=== PATIENT | male | born 1940 | race Caucasian/White ===

== ENCOUNTER 2017-01-13 19:53 | Inpatient (IN) | payer OTHER ==
--- NOTE | ~2017-01-13 | CR72 ---
[facility] A Service of [facility] RADIOLOGY TEXT RESULTS PATIENT: PATRICIA ARIAS LOCATION: [facility] 314-01 : 42 UNIT #: [id number] AGE: [address]: Malena Baugh MD SEX: M ORDER DR: [id number] [facility] [address] [place], [place] [address] [id number] MR#: [id number] Acc #: [id number] NAME: PATRICIA ARIAS. : 1940 SEX: M STUDY DATE/TIME: 01/13/2017 20:17 UNIT: [address] ROOM: [facility] STUDY DESCRIPTION: CR Chest Single View Portable Attending Physician: Malena Baugh M.D. Ordering Physician: Anmol Yeung M.D. Primary Care Physician: Ethan Amos M.D. MEDICAL IMAGING REPORT This report is preliminary unless electronic signature is present EXAM Single view chest. INDICATIONS Shortness of air for 3 days. Cough and congestion. Pneumonia. FINDINGS Single portable AP view of the chest compared to 01/13/2017. Heart and mediastinal contours are within normal limits. There are some chronic interstitial opacities in both lungs. No pleural effusion. IMPRESSION 1. No acute findings or significant interval change. Dictated by... Jordon Hall M.D. THIS IS AN ELECTRONICALLY VERIFIED REPORT Jordon Hall M.D. at 01/14/2017 10:55 AM Danita/scout TD: 01/14/2017 10:19 JOB #: [id number] MEDICAL IMAGING REPORT Page 1 of 1 COPY
--- NOTE | ~2017-01-13 | HP ---
Unit #: [id number] #: [id number] Patient: PATRICIA ARIAS [id number] [address] [place], [place] [address] [id number] MR#: [id number] NAME: PATRICIA ARIAS. ROOM: 314 Age: 76 Sex: M Admission Date: 01/13/2017 : 1940 Attending Physician: Zulay Haile M.D. Primary Care Physician: Ethan Amos M.D. HISTORY AND PHYSICAL CHIEF COMPLAINT Occult community-acquired pneumonia with respiratory failure. HISTORY This 76-year-old male with atrial fibrillation, hypertension, is admitted for pneumonia. The patient was well until about a week ago when he developed a cough, sore throat and hoarseness. His cough has become deeper and is productive of green sputum. More recently, he has developed shortness of breath, poor p.o. intake, weakness and diaphoresis with a temperature of 100 degrees. He was seen by his primary care physician this morning, given Zithromax and Tessalon Perles. The patient felt worse and, therefore, presented to this emergency department tonight where he was given 2 g of IV Rocephin, along with IV fluids. His initial O2 saturation was about 88% on room air. Chest x-ray does not show a definite diseased process but I am highly suspicious the patient does have an occult pneumonia. He has not required antibiotics for the past three months nor has he been hospitalized recently. PAST MEDICAL HISTORY 1. Atrial fibrillation. Previous echo in 2007. Ejection fraction 50% to 55% with trace TR, ND, MR. 2. Hemorrhoids. 3. Essential hypertension. 4. Hyperlipidemia. 5. Hyperuricemia. 6. Oral surgery. ALLERGIES No known drug allergies. HOME MEDICATIONS 1. Zocor 40 mg daily. 2. Hydrochlorothiazide 25 mg daily. 3. Recently started on Tessalon Perles and Zithromax today. 4. Coumadin 5 mg every day except for 7.5 mg Mondays, Wednesdays, Saturdays. 5. Aspirin 81 mg daily. 6. Allopurinol 300 mg daily. 7. Cozaar 100 mg daily. Will verify home medicines. Unit #: [id number] #: [id number] Patient: PATRICIA ARIAS FAMILY HISTORY Hypertension and COPD. SOCIAL HISTORY The patient lives with his . Seldom drinks alcohol. He smokes about five packs per day of tobacco for about 30 years but stopped smoking 30 years ago. REVIEW OF SYSTEMS Notable for productive cough, diaphoresis, shortness of breath, weakness, poor p.o. intake, hyperuricemia, oral surgery, hemorrhoids, atrial fibrillation, hypertension, hyperlipidemia. All other systems were reviewed and are otherwise negative. PHYSICAL EXAMINATION GENERAL APPEARANCE: Pleasant, morbidly obese 76-year-old male, currently in no acute distress. VITAL SIGNS: Temperature 99.3, pulse 90, respirations 27, blood pressure 168/81. O2 saturation was 88% on room air, is 95% on 2 L. HEENT: Eyes PERRLA. Extraocular muscles are intact. Pharynx is benign. NECK: Supple without adenopathy or thyromegaly. CHEST: Diminished breath sounds. CARDIAC: Occasionally irregular S1 and S2 without definite murmur. ABDOMEN: Bowel sounds are present. No hepatosplenomegaly, tenderness or masses. EXTREMITIES: Without clubbing, cyanosis or edema. Pedal pulses are present. NEUROLOGIC: The patient is awake, alert, oriented. Cranial nerves are intact. He has equal strength throughout. DIAGNOSTIC STUDIES LABORATORY: Hematocrit is 43.5, white blood count is 13.5, normal platelet count. SMA-12 - glucose 187, sodium 132, potassium 3.4, chloride is 99, alkaline phos. is 104. Lactic acid is 3. Cardiac markers are negative. INR is 1.9. IMAGING: Chest x-ray - no acute disease but patient is quite obese so it is difficult to read. CARDIOVASCULAR: EKG shows atrial fibrillation, rate 89 with one PVC. Left anterior fascicular block noted. ASSESSMENT 1. Occult community-acquired pneumonia with acute hypoxic respiratory failure. 2. Atrial fibrillation, anticoagulated. 3. Essential hypertension. 4. Morbid obesity. PLANS 1. Rocephin, Zithromax and Xopenex mini nebs along with mucolytics. 2. IV fluids. Repeat lactic acid level. 3. Daily PT and INR. 4. Verify home medicines. 5. IV fluids. Unit #: [id number] #: [id number] Patient: PATRICIA ARIAS 6. The patient is already anticoagulated, no need for DVT prophylaxis. Dictated by Zulay Haile M.D. AML/df TD: 01/14/2017 05:21 JOB #: [id number] HISTORY AND PHYSICAL Page 1 of 1 X Zulay Haile MD HISTORY AND PHYSICAL
--- NOTE | ~2017-01-13 | EKG ---
PATIENT: PATRICIA ARIAS UNIT #: [id number] Ventricular Rate: 89 BPM Atrial Rate: 91 BPM QRS Duration: 118 ms Q-T Interval: 380 ms QTC Calculation(Bezet): 462 ms Calculated R Laporte: -49 degrees Calculated T Laporte: 87 degrees Diagnosis Line: Atrial fibrillation with premature ventricular or Diagnosis Line: aberrantly conducted complexes Diagnosis Line: Left axis deviation Diagnosis Line: Non-specific intra-ventricular conduction block Diagnosis Line: Nonspecific ST and T wave abnormality Diagnosis Line: Abnormal ECG Diagnosis Line: When compared with ECG of 30-OCT-2010 18:02, Diagnosis Line: Vent. rate has increased BY 29 BPM Diagnosis Line: Non-specific intra-ventricular conduction block is Diagnosis Line: now Present Diagnosis Line: Confirmed by PEGGY WASHINGTON MD ([id number]) on 01/14/2017 Diagnosis Line: 5:53:00 AM INTERPRETING MD: FELIX FRANCE
--- NOTE | ~2017-01-13 | DS ---
Unit #: [id number] #: [id number] Patient: PATRICIA HERNANDEZ [id number] [address] [place], [place] [address] [id number] I MR#: [id number] NAME: PATRICIA HERNANDEZ. ROOM: 314 Age: 76 Sex: M Admission Date: 01/13/2017 : 1940 Discharge Date: 01/15/2017 Attending Physician: Malena Baugh M.D. Primary Care Physician: Ethan Amos M.D. DISCHARGE SUMMARY PRINCIPAL DIAGNOSES 1. Sepsis secondary to community-acquired pneumonia. 2. Acute hypoxic respiratory failure, now resolved. 3. Permanent atrial fibrillation, rate controlled and maintained on anticoagulation which is therapeutic. 4. Mild vitamin B12 deficiency with vitamin B12 level of 240. 5. Hyperglycemia with normal hemoglobin A1c of 5.8. 6. Hypertension. 7. Mild protein malnutrition. 8. Morbid obesity. 9. Hyperlipidemia. 10. Gout. CONSULTANTS None. PROCEDURES Chest x-ray on 01/13/2017 without any acute findings. CLINICAL HISTORY AND HOSPITAL COURSE Mr. Hernandez is a nice 76-year-old male who presents to the emergency department with increasing shortness of breath and cough. Please refer to History and Physical for further details. The patient was found to be mildly hypoxic upon presentation. Chest x-ray however did not reveal any pneumonia but patient did have a mild leukocytosis. He was subsequently admitted for occult community-acquired pneumonia. The patient was placed on Rocephin and azithromycin. On antibiotic therapy, the patient's leukocytosis has resolved. Sputum is currently growing a Gram-negative hasmukh and they will follow up culture after discharge to ensure sensitivity to antibiotics provided. The patient remained afebrile and hypoxia has resolved. Patient was found to have an only minimally subtherapeutic INR of 1.8 upon presentation. On day of discharge, INR is now up to 2.0 and will continue home dose of Coumadin. Patient's other chronic conditions remained stable. He was found to a mild vitamin B12 deficiency which we will replace orally. He also had some hyperglycemia but this was only about 160 postprandial which is relatively normal. Hemoglobin A1c was normal at 5.8. DISCHARGE CONDITION Stable. Unit #: [id number] #: [id number] Patient: PATRICIA HERNANDEZ DISCHARGE STATUS Discharge to home. DISCHARGE MEDICATIONS 1. Omnicef 300 mg p.o. b.i.d. for another 5 days. 2. Coumadin 5 mg Friday, Friday, Friday. 3. Coumadin 7.5 mg Friday, , Friday and Friday. 4. Tessalon Perles 100 mg p.o. q.6 h. p.r.n. for cough. 5. Hydrochlorothiazide 25 mg daily. 6. Simvastatin 40 mg h.s. 7. Cozaar 100 mg daily. 8. Allopurinol 300 mg daily. 9. Aspirin 81 mg. 10. Vitamin B12 1000 mcg p.o. daily. DISCHARGE INSTRUCTIONS 1. The patient was instructed to follow a heart-healthy, low calorie diet. 2. Increase activity as tolerated. FOLLOWUP Patient will follow up with his primary care provider in approximately four weeks. Dictated by... Malena Baugh M.D. MATHEUS/kwaku TD: 01/16/2017 16:07 JOB #: [id number] DISCHARGE SUMMARY Page 1 of 1 X Malena Baugh MD X DISCHARGE SUMMARY
[~2017-01-13 19:53] MED LIST: ALLOPURINOL300 MG PO; ANTIVERT PO; ASPIRIN PO; ASPIRIN81 M1 PO; ATENOLOL PO; ATENOLOL25 MG PO; CARDIZEM SR PO; CIPRO PO; COUMADIN PO; COUMADIN5 MG PO; HCTZ PO; IBUPROFEN PO; LISINOPRIL PO; MAXZIDE 75/50 T1 TAB PO; METFORMIN PO; PEPCID PO; PRINIVIL20 M1 PO; ZOCOR20 MG PO; ZYLOPRIM PO
[2017-01-13 20:48] LABS: POC - CKMB 1.5 ng/mL (0.0-7.9); POC - TROPONIN <0.05 ng/mL (<=0.05)
[2017-01-13 20:55] LABS: BASOPHIL# 0.1 X10e3 (0-0.3); BASOPHIL% 0.4 % (0-2.5); EOSINOPHIL% 0.4 % (0.0-7.0); HEMATOCRIT 43.5 % (38.0-50.0); HEMOGLOBIN 14.1 gm/dL (13.0-16.0); LYMPHOCYTE# 0.8 X10e3 (1.0-3.5); MEAN CELL VOLUME 89.8 FL (83-96); MEAN CORPUSCULAR HGB CONC 32.3 g/dL (30-36); MEAN PLATELET VOLUME 9.7 FL (6.5-11.5); MONOCYTE# 1.2 X10e3 (0-1.0); MONOCYTE% 9.2 % (3.0-12.0); NEUTROPHIL# 11.3 X10e3 (1.5-7.1); PLATELET COUNT 196 X10e3 (140-420); RED BLOOD COUNT 4.84 X10e (3.90-5.60); RED CELL DISTRIBUTION WIDTH 14.8 % (11.0-15.5); WHITE BLOOD COUNT 13.5 X10e3 (4.0-10.5)
[2017-01-13 20:56] LABS: DIFF IND NO
[2017-01-13] MEDS ORDERED: ASPIRIN81 MG PO (21:07)
[2017-01-13] MEDS ORDERED: COUMADIN5 MG PO (21:07)
[2017-01-13] MEDS ORDERED: ALLOPURINOL300 MG PO (21:07)
[2017-01-13] MEDS ORDERED: COUMADIN7.5 MG PO (21:07)
[2017-01-13] MEDS ORDERED: COZAAR100 MG PO (21:08)
[2017-01-13] MEDS ORDERED: SIMVASTATIN40 MG PO (21:08)
[2017-01-13] MEDS ORDERED: BENZONATATE PO (21:08)
[2017-01-13] MEDS ORDERED: AZITHROMYCIN250 MG PO (21:08)
[2017-01-13] MEDS ORDERED: HYDROCHLOROTHIA25 MG PO (21:08)
[2017-01-13 21:10] LABS: INR 1.9; PARTIAL THROMBOPLASTIN TIME 36.3 SECONDS (23.5-31.3); PROTHROMBIN TIME (PATIENT) 21.2 SECONDS (10.0-11.7)
[2017-01-13 21:40] LABS: ALBUMIN SERUM 3.2 g/dL (3.5-5.0); BILIRUBIN, DIRECT 0.7 mg/dL (0.0-0.2); BILIRUBIN,TOTAL 1.7 mg/dL (0.2-2.0); CALCIUM SERUM 8.5 mg/dL (8.4-10.2); GLOM FILT RATE Estimated 73.8 mL/min (>60); POTASSIUM 3.4 mmol/L (3.5-5.1); PROTEIN TOTAL SERUM 7.2 g/dL (6.0-8.3)
[2017-01-13 22:13] LABS: POC - CKMB 1.1 ng/mL (0.0-7.9); POC - TROPONIN <0.05 ng/mL (<=0.05)
[2017-01-14 00:29] LABS: URINE SOURCE CLEAN CATCH
[2017-01-14 00:34] LABS: URINE APPEARANCE CLEAR; URINE BLOOD NEG (NEG); URINE COLOR DK YELLOW; URINE GLUCOSE NEG (NEG); URINE KETONE NEG (NEG); URINE LEUKOCYTE ESTERASE TRACE (NEG); URINE NITRATE NEG (NEG); URINE PH 5.5 (5-8); URINE PROTEIN NEG (NEG)
[2017-01-14 00:36] LABS: URBCS1 AUWI 0-2 /[HPF] (0-2); URINE BACTERIA AUWI NEG (NEGATIVE); URINE SQUAMOUS EPITHELIAL CELL NONE SEEN /[HPF]; UWBCS1 AUWI 0-2 (0-5)
[2017-01-14 00:40] LABS: CULTURE INDICATED? NO; URINE BILIRUBIN NEG (NEG)
[2017-01-14 06:17] LABS: BASOPHIL# 0.1 X10e3 (0-0.3); BASOPHIL% 0.5 % (0-2.5); EOSINOPHIL% 0.4 % (0.0-7.0); HEMATOCRIT 41.4 % (38.0-50.0); HEMOGLOBIN 13.3 gm/dL (13.0-16.0); LYMPHOCYTE# 1.2 X10e3 (1.0-3.5); MEAN CELL VOLUME 90.5 FL (83-96); MEAN CORPUSCULAR HEMOGLOBIN 29.2 PG (28-34); MEAN CORPUSCULAR HGB CONC 32.2 g/dL (30-36); MEAN PLATELET VOLUME 9.2 FL (6.5-11.5); MONOCYTE# 1.2 X10e3 (0-1.0); MONOCYTE% 9.5 % (3.0-12.0); NEUTROPHIL# 10.3 X10e3 (1.5-7.1); NEUTROPHIL% 80.6 % (40-75); PLATELET COUNT 172 X10e3 (140-420); RED BLOOD COUNT 4.57 X10e (3.90-5.60); RED CELL DISTRIBUTION WIDTH 14.8 % (11.0-15.5); WHITE BLOOD COUNT 12.8 X10e3 (4.0-10.5)
[2017-01-14 06:27] LABS: DIFF IND NO
[2017-01-14 06:32] LABS: INR 1.9; PROTHROMBIN TIME (PATIENT) 20.5 SECONDS (10.0-11.7)
[2017-01-14 07:28] LABS: FOLATE (FOLIC ACID) 9.9 ng/mL (>5.8)
[2017-01-14 07:54] LABS: BUN/CREATININE RATIO 17.5; CALCIUM SERUM 8.1 mg/dL (8.4-10.2); CREATININE SERUM 0.8 mg/dL (0.6-1.4); POTASSIUM 3.7 mmol/L (3.5-5.1)
[2017-01-15 06:19] LABS: HEMATOCRIT 40.5 % (38.0-50.0); HEMOGLOBIN 13.1 gm/dL (13.0-16.0); MEAN CELL VOLUME 90.6 FL (83-96); MEAN CORPUSCULAR HEMOGLOBIN 29.4 PG (28-34); MEAN CORPUSCULAR HGB CONC 32.4 g/dL (30-36); MEAN PLATELET VOLUME 9.2 FL (6.5-11.5); RED BLOOD COUNT 4.47 X10e (3.90-5.60); RED CELL DISTRIBUTION WIDTH 14.8 % (11.0-15.5); WHITE BLOOD COUNT 9.7 X10e3 (4.0-10.5)
[2017-01-15 06:36] LABS: PROTHROMBIN TIME (PATIENT) 22.2 SECONDS (10.0-11.7)
[2017-01-15 07:27] LABS: BUN/CREATININE RATIO 17.14; CREATININE SERUM 0.7 mg/dL (0.6-1.4); POTASSIUM 3.5 mmol/L (3.5-5.1)
[2017-01-15] MEDS ORDERED: OMNICEF300 M1 PO (11:38)
[2017-01-15] MEDS ORDERED: B-121000 MC1 PO (11:38)
== END 2017-01-15 12:53 | disposition home or self-care (01) | DRG 871 ==
LOC: CED 19:53 → CEDOF 22:41 → CED 22:41 → CEDOF 23:00 → C3A PCU 01-14 03:43 → CEDOF 01-14 03:43 → C3A PCU 01-14 07:47
PROVIDERS: Emergency Medicine; Internal Medicine
DX: A41.9 Sepsis, unspecified organism (principal); J18.9 Pneumonia, unspecified organism; J96.01 Acute respiratory failure with hypoxia; E44.1 Mild protein-calorie malnutrition; Z68.43 Body mass index [BMI] 50.0-59.9, adult; I48.2 Chronic atrial fibrillation; E53.8 Deficiency of other specified B group vitamins; R73.9 Hyperglycemia, unspecified; I10 Essential (primary) hypertension; E66.01 Morbid (severe) obesity due to excess calories; E78.5 Hyperlipidemia, unspecified; M10.9 Gout, unspecified; Z87.891 Personal history of nicotine dependence; R65.20 Severe sepsis without septic shock
CPT/HCPCS: 36415; 71010; 80048; 80076; 81003; 82553; 82607; 82746; 83036; 83605; 84484; 85025; 85027; 85610; 85730; 87040; 87070; 87077; 87086; 87186; 87205; 93005; 94640; 94760; 96365; 99291; J0456; J0696; J3420